=== PATIENT | female | born 1995 | race Caucasian/White ===

== ENCOUNTER → 2022-04-27 10:04 | Outpatient (CLI) | payer OTHER, SELFPAY ==
[2022-04-27 16:44] LABS: Hepatitis B Surface Antigen NEGATIVE s/c (NEGATIVE)
[2022-04-27 17:06] LABS: HIV 1 & 2 Ab/Ag 4th Gen Combo NEGATIVE (NEGATIVE); Hep C Virus Ab w/Reflex Quant NEGATIVE s/c (NEGATIVE)
[2022-04-28 06:41] LABS: RPR Screen Non Reactive (Non Reactive)
[2022-04-28 17:17] LABS: Candida species Negative (Negative); Gardnerella vaginalis Negative (Negative); Trichomoas vaginalis Negative (Negative)
== END ==
PROVIDERS: Referring Provider Physician Assistant Medical; Visit Provider Physician Assistant Medical
DX: Z11.3 Encounter for screening for infections with a predominantly sexual mode of transmission (principal); N89.8 Other specified noninflammatory disorders of vagina
CPT/HCPCS: 36415; 86592; 86803; 87340; 87389; 87480; 87510; 87660

== ENCOUNTER → 2022-05-24 12:36 | Outpatient (CLI) | payer OTHER, SELFPAY | PROVIDERS: Visit Provider Specialist | DX: N76.0 Acute vaginitis (principal) | CPT/HCPCS: 87070; 87205 ==